=== PATIENT | male | born 1930 | race Caucasian/White ===

== ENCOUNTER → 2017-03-20 | Emergency (ER) | payer OTHER ==
[~2017-03-20] VITALS: Ht 170.2 cm; Wt 56.7 kg
[~2017-03-20] MED LIST: ATENOLOL25 MG PO; COZAAR25 MG; CRESTOR5 MG PO; ECOTRIN81 MG PO; FLONASE16 GM NS; HYZAAR 100-251 UDTAB PO; IRON1TAB4 PO; ISOSORBIDE DINI30 MG; LEVSIN/SL0.125 MG SL; NABUMETONE750 MG PO; NEXIUM20 MG/PACK; POLY119PG PO; PROSCAR5 MG PO; SYNTHROID125 MCG; TOPROL XL25 M1; ULTRACET PO; ZANTAC 7575 MG PO; ZETIA10 MG; ZITHROMAX TRI-500 MG PO; ZYRTEC10 MG PO
== END | disposition home or self-care (01) ==
LOC: ER 20:35
DX: J06.9 Acute upper respiratory infection, unspecified (principal); J11.1 Influenza due to unidentified influenza virus with other respiratory manifestations

== ENCOUNTER 2017-04-01 07:25 | Outpatient (CLI) | payer OTHER | END 2017-04-01 07:33 | disposition home or self-care (01) | LOC: NUCLEAR 07:25 | DX: R55 Syncope and collapse (principal); I11.9 Hypertensive heart disease without heart failure ==

== ENCOUNTER 2017-05-14 07:03 | Outpatient (CLI) | payer OTHER | END 2017-05-14 07:12 | disposition home or self-care (01) | LOC: NUCLEAR 07:03 | DX: I25.10 Atherosclerotic heart disease of native coronary artery without angina pectoris (principal); Z95.1 Presence of aortocoronary bypass graft | CPT/HCPCS: 78452; 93017; A9500; J0153 ==

== ENCOUNTER 2017-06-05 07:14 | Outpatient (CLI) | payer OTHER | END 2017-06-05 08:45 | disposition home or self-care (01) | LOC: NUCLEAR 07:14 | DX: D63.1 Anemia in chronic kidney disease (principal); N18.4 Chronic kidney disease, stage 4 (severe); R63.4 Abnormal weight loss; R10.30 Lower abdominal pain, unspecified; R19.5 Other fecal abnormalities; E21.0 Primary hyperparathyroidism; E78.2 Mixed hyperlipidemia; I25.10 Atherosclerotic heart disease of native coronary artery without angina pectoris; N40.0 Benign prostatic hyperplasia without lower urinary tract symptoms; I10 Essential (primary) hypertension; Z95.1 Presence of aortocoronary bypass graft | CPT/HCPCS: 78816; A9552 ==

== ENCOUNTER → 2017-06-19 | Outpatient (CLI) | payer OTHER | END | disposition home or self-care (01) | LOC: NUTRICION 09:30 | DX: E21.2 Other hyperparathyroidism (principal); K57.90 Diverticulosis of intestine, part unspecified, without perforation or abscess without bleeding; K44.9 Diaphragmatic hernia without obstruction or gangrene; R63.6 Underweight ==

== ENCOUNTER 2017-06-27 06:18 | Outpatient (CLI) | payer OTHER | END 2017-06-27 06:25 | disposition home or self-care (01) | LOC: LAB 06:18 | DX: E03.8 Other specified hypothyroidism (principal); E06.2 Chronic thyroiditis with transient thyrotoxicosis ==

== ENCOUNTER 2017-08-15 07:16 | Outpatient (CLI) | payer OTHER | END 2017-08-15 07:28 | disposition home or self-care (01) | LOC: SONOGRAMA 07:16 → MAMO-SONO 08:15 | DX: I10 Essential (primary) hypertension (principal); N18.2 Chronic kidney disease, stage 2 (mild) ==

== ENCOUNTER 2017-08-16 07:11 | Outpatient (CLI) | payer OTHER | END 2017-08-16 07:20 | disposition home or self-care (01) | LOC: RAD 07:11 | DX: N20.0 Calculus of kidney (principal) ==

== ENCOUNTER 2017-08-22 06:21 | Outpatient (CLI) | payer OTHER | END 2017-08-22 06:25 | disposition home or self-care (01) | LOC: LAB 06:21 | DX: E89.0 Postprocedural hypothyroidism (principal) ==

== ENCOUNTER 2017-09-13 06:11 | Outpatient (CLI) | payer OTHER | END 2017-09-13 06:20 | disposition home or self-care (01) | LOC: LAB 06:11 | DX: N18.3 Chronic kidney disease, stage 3 (moderate) (principal); I10 Essential (primary) hypertension; R80.8 Other proteinuria; D63.1 Anemia in chronic kidney disease; N18.4 Chronic kidney disease, stage 4 (severe); R63.4 Abnormal weight loss; R10.30 Lower abdominal pain, unspecified; R19.5 Other fecal abnormalities; E21.0 Primary hyperparathyroidism; E78.2 Mixed hyperlipidemia; I25.10 Atherosclerotic heart disease of native coronary artery without angina pectoris; N40.0 Benign prostatic hyperplasia without lower urinary tract symptoms; Z95.1 Presence of aortocoronary bypass graft; D50.8 Other iron deficiency anemias; D51.8 Other vitamin B12 deficiency anemias; R97.0 Elevated carcinoembryonic antigen [CEA]; E02 Subclinical iodine-deficiency hypothyroidism ==

== ENCOUNTER 2017-10-04 07:25 | Outpatient (CLI) | payer OTHER | END 2017-10-04 07:26 | disposition home or self-care (01) | LOC: RAD 07:25 | DX: M54.5 Low back pain (principal); M25.551 Pain in right hip; M25.552 Pain in left hip ==

== ENCOUNTER 2017-10-10 07:07 | Outpatient (CLI) | payer OTHER | END 2017-10-10 07:20 | disposition home or self-care (01) | LOC: TOM 07:07 | DX: K57.30 Diverticulosis of large intestine without perforation or abscess without bleeding (principal); D63.1 Anemia in chronic kidney disease; N18.4 Chronic kidney disease, stage 4 (severe); R63.4 Abnormal weight loss; R10.30 Lower abdominal pain, unspecified; R19.5 Other fecal abnormalities; E21.0 Primary hyperparathyroidism; E78.2 Mixed hyperlipidemia; I25.10 Atherosclerotic heart disease of native coronary artery without angina pectoris; N40.0 Benign prostatic hyperplasia without lower urinary tract symptoms; I10 Essential (primary) hypertension; Z95.1 Presence of aortocoronary bypass graft; R97.0 Elevated carcinoembryonic antigen [CEA] ==

== ENCOUNTER 2017-12-27 07:16 | Outpatient (CLI) | payer OTHER | END 2017-12-27 07:19 | disposition home or self-care (01) | LOC: MRI 07:16 | DX: D63.1 Anemia in chronic kidney disease (principal); N18.4 Chronic kidney disease, stage 4 (severe); R63.4 Abnormal weight loss; R10.30 Lower abdominal pain, unspecified; R19.5 Other fecal abnormalities; E21.0 Primary hyperparathyroidism; E78.2 Mixed hyperlipidemia; I25.10 Atherosclerotic heart disease of native coronary artery without angina pectoris; N40.0 Benign prostatic hyperplasia without lower urinary tract symptoms; I10 Essential (primary) hypertension; Z95.1 Presence of aortocoronary bypass graft | CPT/HCPCS: 72141 ==

== ENCOUNTER 2018-01-09 07:23 | Outpatient (CLI) | payer OTHER | END 2018-01-09 07:31 | disposition home or self-care (01) | LOC: MRI 07:23 | DX: I63.039 Cerebral infarction due to thrombosis of unspecified carotid artery (principal); G30.1 Alzheimer's disease with late onset | CPT/HCPCS: 70551 ==

== ENCOUNTER 2018-03-26 04:18 | Emergency (ER) | payer OTHER ==
[~2018-03-26] VITALS: Ht 172.7 cm; Wt 58.5 kg
== END 2018-03-26 07:50 | disposition home or self-care (01) ==
LOC: ER 04:18
DX: I16.0 Hypertensive urgency (principal); I10 Essential (primary) hypertension

== ENCOUNTER 2018-03-28 07:11 | Outpatient (CLI) | payer OTHER | END 2018-03-28 07:24 | disposition home or self-care (01) | LOC: MAMO-SONO 07:11 → RAD 07:11 → MAMO-SONO 07:24 | DX: M75.111 Incomplete rotator cuff tear or rupture of right shoulder, not specified as traumatic (principal); I10 Essential (primary) hypertension; E11.65 Type 2 diabetes mellitus with hyperglycemia ==

== ENCOUNTER 2018-05-07 07:29 | Emergency (ER) | payer OTHER ==
[~2018-05-07] VITALS: Ht 172.7 cm; Wt 58.5 kg
[2018-05-07] MEDS ORDERED: ANUSOL-HC25 MG RECTAL (11:11)
== END 2018-05-07 11:26 | disposition home or self-care (01) ==
LOC: ER 07:29
DX: K62.5 Hemorrhage of anus and rectum (principal)

== ENCOUNTER 2018-05-07 13:21 | Inpatient (IN) | payer OTHER ==
[~2018-05-07] VITALS: Ht 172.7 cm; Wt 54.4 kg
[~2018-05-07 13:21] MED LIST changes: +ANUSOL-HC25 MG RECTAL
[2018-05-12] MEDS ORDERED: POLY119PG PO (09:44)
== END 2018-05-12 11:06 | disposition home or self-care (01) | DRG 393 ==
LOC: ER 13:21 → MEDI 18:29 → SEC-K 18:29 → MEDI 18:57
PROVIDERS: ADMIT Internal Medicine
PROC: BW28ZZZ Computerized Tomography (CT Scan) of Head (ICD-10-PCS; 2018-05-07)
PROC: BW21Y0Z Computerized Tomography (CT Scan) of Abdomen and Pelvis using Other Contrast, Unenhanced and Enhanced (ICD-10-PCS; 2018-05-07)
PROC: 4A12X4Z Monitoring of Cardiac Electrical Activity, External Approach (ICD-10-PCS; 2018-05-07)
PROC: 0DBN8ZX Excision of Sigmoid Colon, Via Natural or Artificial Opening Endoscopic, Diagnostic (ICD-10-PCS; principal; 2018-05-09)
PROC: 0DBP8ZX Excision of Rectum, Via Natural or Artificial Opening Endoscopic, Diagnostic (ICD-10-PCS; 2018-05-09)
DX: D12.8 Benign neoplasm of rectum (principal); K57.31 Diverticulosis of large intestine without perforation or abscess with bleeding; K62.5 Hemorrhage of anus and rectum; K64.5 Perianal venous thrombosis; R55 Syncope and collapse; E86.0 Dehydration; E87.8 Other disorders of electrolyte and fluid balance, not elsewhere classified; I12.9 Hypertensive chronic kidney disease with stage 1 through stage 4 chronic kidney disease, or unspecified chronic kidney disease; N18.2 Chronic kidney disease, stage 2 (mild); D63.1 Anemia in chronic kidney disease